=== PATIENT | male | born 1990 | race American Indian/Alaskan Native ===

== ENCOUNTER 2022-01-29 14:30 | Emergency (ER) | payer SELFPAY ==
--- NOTE | 2022-01-29 17:02 | XRay Report ---
CHEST 2 VIEWS INDICATION / CLINICAL INFORMATION: SOB. COMPARISON: None available. FINDINGS: SUPPORT DEVICES: None. HEART / MEDIASTINUM: No significant abnormality. LUNGS / PLEURA: No significant pulmonary or pleural abnormality. No pneumothorax. ADDITIONAL FINDINGS: No significant additional findings. IMPRESSION: 1. No acute findings. Signer Name: Bacilio Domínguez MD Signed: 01/29/2022 4:58 PM Workstation Name: [id number]
--- NOTE | 2022-01-29 17:42 | Emergency Department Report ---
ED General Adult HPI - General Chief complaint: Chest Pain Stated complaint: SOB/CHEST PAINS/COUGH Time Seen by Provider: 01/29/22 16:33 Source: patient Mode of arrival: Ambulatory Limitations: No Limitations - History of Present Illness Initial comments: SOB cough congestion and pain for few days -: Gradual, days(s) Location: chest Severity scale (0 -10): 2 Consistency: intermittent Worsens with: none Associated Symptoms: chest pain, cough Treatments Prior to Arrival: none - Related Data Previous Rx's Medication Instructions Recorded Last Taken Type Albuterol Mdi (or & Nicu Only) 2 puff IH QID PRN #8.5 gram 01/29/22 Unknown Rx [ProAir HFA Inhaler] Azithromycin [Zithromax Z-JENNIFER] 250 mg PO DAILY #6 01/29/22 Unknown Rx Allergies Allergy/AdvReac Type Severity Reaction Status Date / Time No Known Allergies Allergy Verified 01/29/22 16:07 ED Review of Systems ROS: Stated complaint: SOB/CHEST PAINS/COUGH Other details as noted in HPI Constitutional: denies: chills, fever Eyes: denies: eye pain, eye discharge, vision change ENT: denies: ear pain, throat pain Respiratory: denies: cough, shortness of breath, wheezing Cardiovascular: denies: chest pain, palpitations Endocrine: no symptoms reported Gastrointestinal: denies: abdominal pain, nausea, diarrhea Genitourinary: denies: urgency, dysuria Musculoskeletal: denies: back pain, joint swelling, arthralgia Skin: denies: rash, lesions Neurological: denies: headache, weakness, paresthesias Psychiatric: denies: anxiety, depression Hematological/Lymphatic: denies: easy bleeding, easy bruising ED Past Medical Hx - Past Medical History Previous Medical History?: No Hx Hypertension: No - Medications Home Medications: Home Medications Medication Instructions Recorded Confirmed Last Taken Type Albuterol Mdi (or & Nicu Only) 2 puff IH QID PRN #8.5 gram 01/29/22 Unknown Rx [ProAir HFA Inhaler] Azithromycin [Zithromax Z-JENNIFER] 250 mg PO DAILY #6 01/29/22 Unknown Rx ED Physical Exam - General Limitations: No Limitations General appearance: alert, in no apparent distress - Head Head exam: Present: atraumatic, normocephalic - Eye Eye exam: Present: normal appearance - ENT ENT exam: Present: mucous membranes moist - Neck Neck exam: Present: normal inspection - Respiratory Respiratory exam: Present: normal lung sounds bilaterally. Absent: respiratory distress - Cardiovascular Cardiovascular Exam: Present: regular rate, normal rhythm. Absent: systolic murmur, diastolic murmur, rubs, gallop - GI/Abdominal GI/Abdominal exam: Present: soft, normal bowel sounds - Rectal Rectal exam: Present: deferred - Extremities Exam Extremities exam: Present: normal inspection - Back Exam Back exam: Present: normal inspection - Neurological Exam Neurological exam: Present: alert, oriented X3 - Psychiatric Psychiatric exam: Present: normal affect, normal mood - Skin Skin exam: Present: warm, dry, intact, normal color. Absent: rash ED Course Vital Signs 01/29/22 16:07 Temperature 98.3 F Pulse Rate 84 Respiratory 16 Rate Blood Pressure 127/87 [Left] O2 Sat by Pulse 95 Oximetry Critical care attestation.: If time is entered above; I have spent that time in minutes in the direct care of this critically ill patient, excluding procedure time. ED Disposition Clinical Impression: SOB (shortness of breath), Bronchitis Disposition: 01 HOME / SELF CARE / HOMELESS Is pt being admited?: No Does the pt Need Aspirin: No Condition: Stable Instructions: Chronic Bronchitis (ED) Referrals: PRIMARY CARE, [Primary Care Provider] - 3-5 Days
[2022-01-29 18:01] VITALS: BP 117/82
--- NOTE | 2022-01-30 10:56 | Electrocardiograph Report ---
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
== END 2022-01-29 18:04 | disposition home or self-care (01) ==
LOC: ED 14:30
DX: R06.02 Shortness of breath (principal); J40 Bronchitis, not specified as acute or chronic
CPT/HCPCS: 71046; 93005; 99283

== ENCOUNTER 2022-07-09 13:11 | Emergency (ER) | payer OTHER ==
[2022-07-09 14:25] VITALS: BP 117/85
--- NOTE | 2022-07-09 22:21 | Cat Scan Report ---
CT head/brain wo con INDICATION: Unspecified head injury. TECHNIQUE: Routine CT head. All CT scans at this location are performed using CT dose reduction for A KIRSTY by means of automated exposure control. COMPARISON: None. FINDINGS: Intracranial: Lares-white matter differentiation is maintained. No intracranial hemorrhage. No extra a xial collection. No hydrocephalus. No herniation. Sinuses: Paranasal sinuses and mastoid air cells are essentially clear. Orbits: No significant abnormality. Calvarium: No acute fracture. IMPRESSION: 1. No acute intracranial abnormality. Signer Name: Eze Montgomery MD Signed: 07/09/2022 10:17 PM Workstation Name: [id number]
== END 2022-07-10 01:58 | disposition left against medical advice (07) ==
LOC: ED 13:11
DX: S01.83XA Puncture wound without foreign body of other part of head, initial encounter (principal); Z53.21 Procedure and treatment not carried out due to patient leaving prior to being seen by health care provider; W34.09XA Accidental discharge from other specified firearms, initial encounter; Y93.89 Activity, other specified; Y92.89 Other specified places as the place of occurrence of the external cause; Y99.8 Other external cause status
CPT/HCPCS: 70450